=== PATIENT | female | born 1985 | race Caucasian/White ===

== ENCOUNTER → 2018-09-18 | Outpatient (CLI) | payer OTHER, SELFPAY ==
--- NOTE | 2018-09-18 09:07 | US_ITS ---
HISTORY: Abdominal pain, fatigue COMPARISON: None. TECHNIQUE: Real-time transabdominal imaging of the right upper quadrant was performed. # of images incl. paperwork: 104 FINDINGS: LIVER: Normal size and parenchymal echotexture. No focal lesions are identified. GALLBLADDER: No biliary sludge or stones. No abnormal wall thickening or pericholecystic fluid. Sonographic Ingram sign: Negative. CBD/BILE DUCT: The common bile duct is not dilated, measuring 5 mm. There is no intra or extrahepatic biliary ductal dilatation. PANCREAS: Grossly unremarkable, partially obscured by superimposed bowel gas. OTHER: Right kidney is unremarkable without hydronephrosis, measuring 11.4 cm in length. US/Abdomen Limited IMPRESSION: 1. Negative right upper quadrant ultrasound. at 1317 Reported and signed by: Macho Menchaca MD Electronically Signed: Macho Menchaca MD at 13:16 EDT Tel , Service support ,
== END | disposition home or self-care (01) ==
LOC: US 08:55
PROVIDERS: Family Provider Internal Medicine; PCP Internal Medicine; Referring Provider Internal Medicine; Visit Provider Internal Medicine
DX: Q45.3 Other congenital malformations of pancreas and pancreatic duct (principal)
CPT/HCPCS: 76705

== ENCOUNTER → 2018-11-15 09:12 | Outpatient (CLI) | payer OTHER, SELFPAY ==
[2018-11-20 12:07] LABS: Epinephrine, 24Ur 8 ug/24 hr (0-20); Norepinephrine, 24Ur 45 ug/24 hr (0-135)
[2018-11-20 17:28] LABS: Dopamine, 24Ur 297 ug/24 hr (0-510); Dopamine, UR 112 ug/L (Undefined); Epinephrine, Ur 3 ug/L (Undefined); Norepinephrine, Ur 17 ug/L (Undefined)
== END ==
PROVIDERS: Family Provider Internal Medicine; PCP Internal Medicine; Referring Provider Internal Medicine Endocrinology, Diabetes & Metabolism; Visit Provider Internal Medicine Endocrinology, Diabetes & Metabolism
DX: E03.9 Hypothyroidism, unspecified (principal); E27.8 Other specified disorders of adrenal gland
CPT/HCPCS: 36415; 81050; 82384; 82533; 84443

== ENCOUNTER → 2019-02-11 13:44 | Outpatient (CLI) | payer OTHER, SELFPAY ==
[2019-02-11 14:59] LABS: Anion Gap 6 (5-15); BUN 10 mg/dL (7-18); BUN/Creat Ratio 11.8 RATIO (10-20); Calcium,Total 9.2 mg/dL (8.5-10.1); Chloride 105 mmol/L (98-107); Creatinine, Serum 0.85 mg/dL (0.55-1.02); EST Glomerular Filtration Rate 83 mL/min (>60); Est Glom Filt Rate - Afr Amer 100 mL/min (>60); Glucose 86 mg/dL (74-106); Potassium 3.8 mmol/L (3.5-5.1); Sodium Level 137 mmol/L (136-145)
[2019-02-11 15:03] LABS: hCG Titer Quant., Serum < 1 mIU/mL (1-3)
== END ==
PROVIDERS: Family Provider Internal Medicine; PCP Internal Medicine; Referring Provider Internal Medicine Endocrinology, Diabetes & Metabolism; Visit Provider Internal Medicine Endocrinology, Diabetes & Metabolism
DX: E27.9 Disorder of adrenal gland, unspecified (principal)
CPT/HCPCS: 36415; 80048; 84702

== ENCOUNTER → 2020-01-18 12:15 | Outpatient (CLI) | payer OTHER, SELFPAY ==
[2019-12-28 14:05] VITALS: BMI 24.0
--- NOTE | 2020-01-18 12:28 | US_ITS ---
STUDY: ULTRASOUND OF THE FEMALE PELVIS - COMPLETE REASON FOR EXAM: Female, 34 years old. Dysmenorrhea LMP: 01/13/2020. TECHNIQUE: Transabdominal and Transvaginal TECHNICAL QUALITY: Adequate. COMPARISON: None. FINDINGS: The uterus is anteverted and is in a midline position. The uterus measures 8.6 cm x 5.3 cm x 3.6 cm. Normal uterine cervix. The endometrium measures 3.8 mm in thickness, and is hyperechoic. There is no demonstrated endometrial mass. There is a 1.1 cm x 1.2 cm x 0.9 cm uterine fibroid. I.U.D. - The patient does not have an I.U.D. The right ovary is visualized. The right ovary measures 3.2 cm x 2.7 cm x 2.3 cm. There is no right ovarian cyst or ovarian mass. There is no visualized right adnexal mass or complex lesion. There is normal arterial and normal venous vascularity. The left ovary is visualized. The left ovary measures 2.3 cm x 1.8 cm x 2.3 cm. There is no left ovarian cyst or ovarian mass. There is no visualized left adnexal mass or complex lesion. There is normal arterial and normal venous vascularity. There is no fluid in the cul-de-sac. The pre void volume of the bladder was 140 ml. Polycystic ovary disease: No. US/Pelvic (Non ) IMPRESSION: 1.1 cm x 1.2 cm x 0.9 cm uterine fibroid. Electronically Signed: Antoine Potts, at 14:12 EST , Service support ,
--- NOTE | 2020-01-18 12:28 | US_ITS ---
STUDY: ULTRASOUND OF THE FEMALE PELVIS - COMPLETE REASON FOR EXAM: Female, 34 years old. Dysmenorrhea LMP: 01/13/2020. TECHNIQUE: Transabdominal and Transvaginal TECHNICAL QUALITY: Adequate. COMPARISON: None. FINDINGS: The uterus is anteverted and is in a midline position. The uterus measures 8.6 cm x 5.3 cm x 3.6 cm. Normal uterine cervix. The endometrium measures 3.8 mm in thickness, and is hyperechoic. There is no demonstrated endometrial mass. There is a 1.1 cm x 1.2 cm x 0.9 cm uterine fibroid. I.U.D. - The patient does not have an I.U.D. The right ovary is visualized. The right ovary measures 3.2 cm x 2.7 cm x 2.3 cm. There is no right ovarian cyst or ovarian mass. There is no visualized right adnexal mass or complex lesion. There is normal arterial and normal venous vascularity. The left ovary is visualized. The left ovary measures 2.3 cm x 1.8 cm x 2.3 cm. There is no left ovarian cyst or ovarian mass. There is no visualized left adnexal mass or complex lesion. There is normal arterial and normal venous vascularity. There is no fluid in the cul-de-sac. The pre void volume of the bladder was 140 ml. Polycystic ovary disease: No. US/Transvaginal Non- IMPRESSION: 1.1 cm x 1.2 cm x 0.9 cm uterine fibroid. Electronically Signed: Antoine Potts, at 14:12 EST , Service support ,
== END ==
PROVIDERS: PCP Family Medicine; Referring Provider Nurse Practitioner Women's Health; Visit Provider Nurse Practitioner Women's Health
DX: N94.0 Mittelschmerz (principal); N94.6 Dysmenorrhea, unspecified
CPT/HCPCS: 76830; 76856